=== PATIENT | male | born 1985 | race Caucasian/White ===

== ENCOUNTER 2017-03-25 16:35 | Emergency (ER) | payer MEDICAID ==
[2017-03-25 19:30] VITALS: BP 127/79
== END 2017-03-25 19:30 | disposition home or self-care (01) ==
LOC: ED 16:35
DX: J06.9 Acute upper respiratory infection, unspecified (principal); M25.511 Pain in right shoulder

== ENCOUNTER 2017-12-23 18:31 | Emergency (ER) | payer MEDICAID ==
[~2017-12-23] VITALS: Ht 172.7 cm; Wt 87.5 kg
[2017-12-23 18:47] VITALS: Ht 172.7 cm; Wt 87.5 kg
[2017-12-23 20:45] LABS: BASOPHIL % 0.4 % (0-2); PLATELET COUNT 232 x10^3mcL (130-400); RED CELL DISTRIBUTION WIDTH 12.4 % (11.5-14.5)
[2017-12-23 20:47] LABS: CALCIUM 9.1 mg/dL (8.5-10.1); CARBON DIOXIDE 26.2 mmol/L (21-32); CHLORIDE SERUM 102 mmol/L (98-107); CREATININE SERUM 1.1 mg/dL (0.7-1.3); GFR1 > 60 mL/min; GLUCOSE SERUM 96 mg/dL (74-106); POTASSIUM SERUM 3.6 mmol/L (3.5-5.1); SODIUM SERUM 131 mmol/L (136-145)
[2017-12-23 20:50] LABS: ALBUMIN 4.2 g/dL (3.4-5.0); ALKALINE PHOSPHATASE 92 U/L (46-116); ALT/SGPT 43 U/L (16-63); AST/SGOT 25 U/L (15-37); BILIRUBIN TOTAL 1.12 mg/dL (0.20-1.00); TOTAL PROTEIN, SERUM 7.5 g/dL (6.4-8.2)
[2017-12-23 21:39] VITALS: BP 126/65
== END 2017-12-23 21:39 | disposition home or self-care (01) ==
LOC: ED 18:31
PROVIDERS: Emergency Medicine
DX: J02.0 Streptococcal pharyngitis (principal); M54.9 Dorsalgia, unspecified; R05 Cough; M79.605 Pain in left leg; M79.604 Pain in right leg; R07.89 Other chest pain
CPT/HCPCS: 87804; J7030

== ENCOUNTER 2019-01-24 06:59 | Emergency (ER) | payer MEDICAID ==
[~2019-01-24] VITALS: Ht 177.8 cm; Wt 82.6 kg
[2019-01-24 07:12] VITALS: Ht 177.8 cm; Wt 82.6 kg
[2019-01-24 08:33] VITALS: BP 125/71
== END 2019-01-24 08:33 | disposition home or self-care (01) ==
LOC: ED 06:59
DX: S83.91XA Sprain of unspecified site of right knee, initial encounter (principal); X50.1XXA Overexertion from prolonged static or awkward postures, initial encounter; Y93.89 Activity, other specified; Y92.89 Other specified places as the place of occurrence of the external cause; Y99.8 Other external cause status